=== PATIENT | male | born 1975 | race Caucasian/White ===

== ENCOUNTER 2021-02-03 15:05 | Emergency (ER) | payer OTHER ==
[~2021-02-03] VITALS: Ht 188 cm; Wt 91.0 kg
[2021-02-03] MEDS ORDERED: TRAMADOL 50MG TABLET PO ONE (15:30)
[2021-02-03] MEDS ORDERED: IBUP-2030 MT (16:34)
[2021-02-03 16:50] VITALS: BP 112/72
== END 2021-02-03 17:01 | disposition home or self-care (01) ==
LOC: ER 15:05
DX: S52.592A Other fractures of lower end of left radius, initial encounter for closed fracture (principal); X58.XXXA Exposure to other specified factors, initial encounter; Y93.89 Activity, other specified; Y92.89 Other specified places as the place of occurrence of the external cause; Y99.8 Other external cause status
CPT/HCPCS: 73110; 99283